=== PATIENT | male | born 1995 | race Caucasian/White ===

== ENCOUNTER 2021-07-10 18:12 | Emergency (ER) | payer OTHER, SELFPAY ==
--- NOTE | 2021-07-10 18:17 | ED.URI ---
HPI - URI/Sore Throat General Chief Complaint: Upper Respiratory Infection Stated Complaint: HEADACHE/COUGH/COVID EXPOSURE Source: patient Mode of arrival: ambulatory Limitations: no limitations History of Present Illness HPI Narrative: Patient is a 25-year-old male who presents complaining headache x1 day. Patient reports exposed to positive Covid over the past week. He denies fever, chills body aches cough congestion or sore throat. Reports headache started this a.m. Patient is not vaccinated for Covid at this time. He denies significant medical history. Denies taking [id number] medications prior to arrival. MD elicited complaint: other (Headache) Related Data Allergies Allergy/AdvReac Type Severity Reaction Status Date / Time No Known Allergies Allergy Mild Verified 06/21/08 17:08 Review of Systems Review of Systems: CONSTITUTIONAL: Denies fever, chills, or sweats. EYES: Denies visual changes, redness, or discharge. ENT: Denies rhinorrhea, congestion, sore throat, or otalgia. CARDIOVASCULAR: Denies chest pain, palpitations, or edema. RESPIRATORY: Denies cough or dyspnea. GASTROINTESTINAL: Denies abdominal pain, nausea, vomiting, or diarrhea. GENITOURINARY: Denies dysuria or hematuria. SKIN: Denies rash or itching. MUSCULOSKELETAL: Denies back pain, joint pain, or myalgia. NEUROLOGIC: Reports headache, denies numbness, dizziness, or weakness. PSYCHIATRIC: Denies anxiety or depression. [facility] Past Medical History Medical History No significant past medical history Surgical History Surgical History No significant past surgical history Family History Family History Other No significant family history Social History Social History (Updated 07/10/21 @ 18:19 by PERCY Reynolds) Smoking status: Never smoker Alcohol intake: current Alcohol use details: Occasional Substance use: never Comments At the time of signature, I have reviewed and agree with nursing past medical, surgical, social, and family history unless otherwise noted. Please see nursing chart for further information. There is no relevant family history pertinent to the presenting complaint. Exam Narrative: GENERAL: Well-appearing, well-nourished, and in no acute distress. HEAD: Normocephalic, atraumatic. EYES: EOMI. No redness or drainage. Conjunctiva are normal. ENT: Mucous membranes pink and moist. Nares clear. No rhinorrhea. TMs normal bilaterally. Throat normal. Uvula midline. NECK: AROM. Supple. No lymphadenopathy. CHEST: No respiratory distress. Clear to auscultation. HEART: Regular rate and rhythm. No murmur appreciated. Normal peripheral pulses. GI: Soft, nontender without rebound, or guarding. No distention. Bowel sounds normal in all quadrants. MUSCULOSKELETAL: No bony tenderness. EXTREMITIES: Normal range of motion. No edema. SKIN: Warm, dry, no rash. NEURO: No focal deficits. Alert and oriented x3. Gait steady. PSYCH: Normal affect. No signs of depression or anxiety. MDM - URI/Sore Throat MDM Narrative Medical decision making narrative: Discussed with patient Covid PCR testing. Covid PCR sent at this time. Patient aware of need for quarantine. Patient to treat symptoms with [id number] medications as directed. Patient is stable for discharge home with outpatient follow-up as discussed. Critical Care Time Critical Care Time Critical Care Time: No Discharge Plan Discharge Clinical Impression: Upper respiratory infection, Head ache Patient Disposition: Home, Self-Care Condition: Stable Instructions: COVID-19 (Coronavirus Disease 2019) (ED), COVID-19: Slow the Coronavirus Spread (ED) Additional Instructions: You take Tylenol or ibuprofen as directed. Stay well-hydrated. Follow-up with your PCP in 3 to 5 days i
[2021-07-10 18:20] VITALS: BP 137/86; PULSE 74; RESP 16; TEMP 37.2; O2SAT 100
[2021-07-13 18:39] LABS: SARS-CoV-2 RNA PCR Negative
== END 2021-07-10 18:48 | disposition home or self-care (01) ==
PROVIDERS: Emergency Provider Nurse Practitioner
DX: J06.9 Acute upper respiratory infection, unspecified (principal); R51.9 Headache, unspecified; Z20.822 Contact with and (suspected) exposure to COVID-19
CPT/HCPCS: 87426; 99213; C9803; G0463; U0003; U0005

== ENCOUNTER → 2021-12-28 16:53 | Outpatient (CLI) | payer OTHER, SELFPAY ==
--- NOTE | ~2021-12-28 | MR_ITS ---
EXAMINATION: MR knee LT wo con DATE: 12/28/2021 17:29 INDICATION: Sprain of anterior cruciate ligament of left knee, initial evaluation. TECHNIQUE: Magnetic resonance imaging (MRI) of the left knee was performed without intravenous contra st. Sequences included axial, coronal, and sagittal STIR FSE and coronal and sagittal PD-weighted FSE . COMPARISON: None. FINDINGS: Medial compartment: Medial meniscus is normal. Medial compartment cartilage is normal. Lateral compartment: Lateral meniscus is normal. There is shallow partial-thickness cartilage loss of tibial condyle poste riorly. There is partial-thickness cartilage loss of femoral condyle involving the posterior articula r surface. Patellofemoral compartment: There is shallow partial-thickness cartilage loss of patellar median ridge. Trochlear cartilage is no rmal. Ligaments and tendons: There are changes of anterior cruciate ligament reconstruction. The graft is intact. The posterior cr uciate ligament is intact. Medial collateral ligament and lateral collateral ligament complex are int act. There is mild patellar tendinopathy. Fluid: There is a small knee joint effusion. Osseous/other: There is edema-like marrow signal intensity involving the medial aspect of medial femoral condyle, la teral aspect of lateral femoral condyle, posterior aspect of intercondylar eminence, and lateral and posterior aspects of lateral tibial condyle. There is a low signal trabecular fracture line at elementary reading specialist ior aspect of lateral tibial condyle. IMPRESSION: 1. Trabecular fracture of posterior aspect of lateral tibial condyle. Multifocal bone marrow edema, c onsistent with contusions. 2. Mild chondrosis of lateral and patellofemoral compartments. 3. Intact anterior cruciate ligament reconstruction. 4. Small knee joint effusion. Reviewed, dictated and finalized at location A. [facility] IMPRESSION: 1. Trabecular fracture of posterior aspect of lateral tibial condyle. Multifoca l bone marrow edema, consistent with contusions. 2. Mild chondrosis of lateral and patellofemoral compartments. 3. Intact anterior cruciate ligament reconstruction. 4. Small knee joint effusion.
== END ==
PROVIDERS: Visit Provider Physician Assistant
DX: S83.512A Sprain of anterior cruciate ligament of left knee, initial encounter (principal); M25.462 Effusion, left knee; S83.242A Other tear of medial meniscus, current injury, left knee, initial encounter; S82.122A Displaced fracture of lateral condyle of left tibia, initial encounter for closed fracture; M79.89 Other specified soft tissue disorders; M22.2X2 Patellofemoral disorders, left knee
CPT/HCPCS: 73721